=== PATIENT | male | born 1965 | race Caucasian/White ===

== ENCOUNTER 2018-03-18 17:13 | Observation (INO) ==
[2018-03-18] MEDS ORDERED: Naloxone 0.4 MG/ML INJ IVP PRN (21:46)
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
[2018-03-18] MEDS: Melatonin 3 MG TABLET PO PRN (22:13)
[2018-03-18] MEDS ORDERED: Ibuprofen 400 MG TABLET PO PRN (22:20)
[2018-03-19 06:15] LABS: Mean Corpuscular Volume 85.7 fL (83.0-100.0); Red Cell Distribution Width 18.7 % (11.5-14.5)
[2018-03-19 06:16] LABS: Hematocrit 29.9 % (37.5-50.1); Hemoglobin 9.1 g/dL (12.9-16.9); Mean Corpuscular HGB Conc 30.4 g/dL (31.6-35.5); Mean Corpuscular Hemoglobin 26.1 pg (28.0-33.3); Mean Platelet Volume 10.4 fL (9.4-12.4); Red Blood Count 3.49 M/mcL (4.19-5.50)
[2018-03-19 06:31] LABS: Alanine Aminotransferase 27 Units/L (7-52); Albumin 3.2 g/dL (3.5-5.7); Alkaline Phosphatase 66 Units/L (34-104); Aspartate Amino Transferase 48 Units/L (13-39); BUN/Creatinine Ratio 7 (6-26); Bilirubin,Total 1.3 mg/dL (0.3-1.0); Blood Urea Nitrogen 5 mg/dL (6-20); Calcium 8.3 mg/dL (8.6-10.3); Carbon Dioxide 25 mEq/L (23-29); Chloride 103 mEq/L (98-107); Globulin 3.2 g/dL (2.4-3.5); Glucose 113 mg/dL (70-105); Osmolality,Calculated 282 (280-300); Potassium 3.2 mEq/L (3.5-5.1); Sodium 137 mEq/L (136-145); Total Protein 6.4 g/dL (6.4-8.9); eGFR For Non-African Americans > 60 (> 60)
[2018-03-19 08:32] LABS: Magnesium 1.7 mg/dL (1.6-2.6)
[2018-03-19 08:46] LABS: Thyroid Stimulating Hormone 2.662 mcIU/mL (0.340-5.600)
--- NOTE | 2018-03-19 09:28 | Cardiology Consult Note ---
Date of Encounter: 03/19/18 Time of Encounter: 09:00 Assessment and Plan (1) A-fib Current Visit: Yes Status: Resolved Pt presented to [facility] ER at the request of his physician yesterday; having "funny beets" in his chest outfront of the office -EKG at doctor showed A fib -He stated that he had dizziness and felt like his heart was racing. -presumably been having episodes for the last 6-8 mos ---> He has associated s/ s of SOB, shakiness, dizziness and palpitations -he denies chest pain with the episode and denies active chest pain -he denies N/V, sweats, or fevers -the pt spon't converted to normal sinus rhythm without intervention in the ER at [place] and was transferred to [place] for further workup CXR 03/18/18 -cardiomegaly -chronic appearing coarse interstitial densities predominate parahilar regions/ lung bases -typical sequela from smoking or other infectious/inflammatory processes -no definitive radiographic evidence of acute pulmonary disease -troponins (-) x 2 -EKG from [facility] showed a fib Plan: -ECHO pending -continue telemetry -Aspirin 81mg PO -start lopressor 25mg PO daily -CHADVASc score - 1, would benefit from ASA only, no need for anticoagulants senior care at this point -if ECHO are normal, pt will be stable from a cardiology standpoint for discharge and the pt can follow up as an outpatient with cardiology Qualifiers: Atrial fibrillation type: paroxysmal Qualified Code(s): I48.0 - Paroxysmal atrial fibrillation (2) Hypertension Current Visit: No Status: Chronic Pt BP this morning 110/67 -adequate control Plan: -continue HCTZ 25mg PO daily -consider adding Potassium to his daily regimen, as the pt has a K of 3.2 this morning Qualifiers: Hypertension type: essential hypertension Qualified Code(s): I10 - Essential (primary) hypertension (3) Alcohol abuse Current Visit: No Status: Chronic Pt drinks 10-12 beers per day -denies hx of withdrawal, hallucinosis, DT's -pt has thrombocytopenia (80k plt) and anemia, he displays no stigmata of EtOH abuse such as umbilical varices/palmar erythema/or telangiectasas -AST 48, ALT 27 Plan: -counseld pt on the adverse health affects of alcoholism, recommended trying AA -monitor as per CIWA protocol and primary -check B1 levels -check Mg and Phosphorus levels -CIWA score has been 1 since admission -consider adding a banana bag if thiamine is low Discussion w patient/family: The assessment and plan as outlined above was discussed with the patient and/or family members who expressed understanding and agreement. All questions were answered. Thank you for involving us in the care of your patient. Please call with any questions. History of Present Illness Consult date: 03/18/18 Requesting physician: Mario Ryder Consult reason: A fib RVR Chief complaint: "funny beets in my chest" History of present illness: Mr. Solares is a 52 year old male who presented to the ER at [place] at the request of his PCP. When he went to his dr appt that morning, he had an episode of having "funny beets" in his chest outfront of the office and the doctor did an EKG, which showed him to be in a fib. He stated that he had dizziness and felt like his heart was racing. -since around August or September, the pt states he has been having episodes of dizziness and palpiltations, which he thought was due to trying to get off his pain meds. -He was going to the doctor for an evaluation of a left breast lump -He has associated s/s of SOB, shakiness, dizziness and palpiltations -he denies chest pain with the episode and denies active chest pain -he denies N/V, sweats, or fevers -the pt spon't converted to normal sinus rhythm without intervention in the ER at [place] and was transferred to [place] for further workup The pt has a hx of alcohol abuse and drinks 10-12 beers daily. -He states he is not experiencing any s/s of EtOH withdrawal, however, does state that he is very anxious and appears slightly clammy. He denies that the anxiety has anything to do with not having a drink since yesterday and denies any hx of going thru EtOH withdrawal, hallucinosis, or DT's Fluids - none Electrolytes - Potassium 3.2 Nutrition - currently NPO DVT prophylaxis - SCD's GI prophylaxis - omeprazole 20mg PO daily Past Med Surg Social Fam HX - Past Medical History Medical history: hypertension Additional medical history: chronic pain, Psychiatric history: no psych history - Past Surgical History Additional surgical history: multiple right leg surgeries, - Social History Smoking Status: Never smoker Smokeless Tobacco Status: No Alcohol use: heavy Drug use: none Medications and Allergies Omeprazole Magnesium [Prilosec Otc] 20 mg PO DAILY 03/04/16 [History] OxyCODONE Immed Rel [Roxicodone 10 MG] 10 mg PO Q6H PRN 03/04/16 [History] hydroCHLOROthiazide [Hydrochlorothiazide] 25 mg PO DAILY 03/04/16 [History] 3 Allergy/AdvReac Type Severity Reaction Status Date / Time No Known Allergies Allergy Unverified 12/30/16 14:36 All Systems Review: The remainder of the systems were reviewed and are negative - Constitutional Constitutional: weight loss, no fever(s), no night sweats - Cardiovascular Cardiovascular: lightheadedness, palpitations, paroxysmal nocturnal dyspnea, no chest pain at rest, no chest pain with exertion, no dyspnea at rest, no dyspnea on exertion, no irregular heart rhythm, no orthopnea - Respiratory Respiratory: no dyspnea, no wheezing - Gastrointestinal Gastrointestinal: no abdominal pain, no diarrhea, no nausea - Musculoskeletal Musculoskeletal: abnormal gait, arthralgias - Neurological Neurological: dizziness, no numbness, no tingling Physical Examination Vital Signs, Last 4 Hours Temp Pulse Resp BP Pulse Ox 03/19/18 06:58 98.3 F 77 15 110/67 98 General: Conversant, No Apparent Distress HEENT: Atraumatic, Normocephaly, Mucus Membranes Moist Neck: No JVD Cardiac: Reg Rate and Rhythm, Normal S1 and S2, No Murmur Lungs: Normal Breath Sounds, No Wheeze, Rales, Rhonchi Neuro: Alert and responsive Abdomen: Soft Skin: No rashes noted on visualized skin Musculoskeletal: No Chest Wall Tenderness Extremities: No Edema Results 03/19/18 05:47 03/19/18 05:47 Lab Results 03/18/18 03/19/18 03/19/18 22:23 05:47 05:47 WBC 3.5 L Hgb 9.1 L D Hct 29.9 L Plt Count 80 L Sodium Potassium Chloride Carbon Dioxide BUN Creatinine Glucose Calcium Magnesium Total Bilirubin AST ALT Alkaline Phosphatase Troponin I < 0.03 < 0.03 TSH 03/19/18 05:47 WBC Hgb Hct Plt Count Sodium 137 Potassium 3.2 L Chloride 103 Carbon Dioxide 25 BUN 5 L Creatinine 0.70 Glucose 113 H Calcium 8.3 L Magnesium 1.7 Total Bilirubin 1.3 H AST 48 H ALT 27 Alkaline Phosphatase 66 Troponin I TSH 2.662 Consult Discharge Plan - Plan Referrals: NONE,PCP [Primary Care Provider] -
[2018-03-19 10:41] LABS: Magnesium 1.7 mg/dL (1.6-2.6); Phosphorous 3.3 mg/dL (2.7-4.5)
[2018-03-19] MEDS ORDERED: Regadenoson 0.4 MG/5 ML SYRINGE IVP ONE (11:09)
--- NOTE | 2018-03-19 13:17 | Internal Med Progress Note ---
Hospitalist Progress Note - Encounter Date of Encounter: 03/19/18 Time of Encounter: 13:15 - Subjective Interval History: Pt currently has no complaints. - Exam Vitals: Temp Pulse Resp BP Pulse Ox 98.2 F 84 16 129/80 96 03/19/18 11:11 03/19/18 11:11 03/19/18 11:11 03/19/18 11:11 03/19/18 11:11 Exam: PHYSICAL EXAMINATION: GENERAL APPEARANCE: The patient is alert, oriented and in no acute distress. HEENT: Head is normocephalic. The sinuses are nontender. Pupils are equal and reactive. The nares are patent. Oropharynx clear without lesions. NECK: Supple without lymphadenopathy. HEART: Regular rate and rhythm. LUNGS: No crackles or wheezes are heard. ABDOMEN: Soft, nontender, nondistended with good bowel sounds heard. Inguinal area is normal. EXTREMITIES: Without cyanosis, clubbing or edema. NEUROLOGICAL: Gross nonfocal. SKIN: Warm and dry without any rash. - Assessment and Plan (1) A-fib Current Visit: Yes Status: Resolved Assessment and Plan: 52-year-old male presented with new onset of atrial fibrillation.self converted to sinus rhythm at the ED. Cardiology consulted, pending echocardiogram and a stress test. (2) Thrombocytopenia Current Visit: No Status: Acute Assessment and Plan: Platelets stable, etiology likely secondary to chronic alcohol abuse. (3) Alcohol abuse Current Visit: No Status: Chronic Assessment and Plan: Discussed with patient about alcohol cessation. (4) DVT prophylaxis Current Visit: Yes Status: Acute Assessment and Plan: SCDs. (5) Hypertension Current Visit: No Status: Chronic Assessment and Plan: BP controlled, continue home medications. - Time Spent with Patient Total time spent is greater than 50% in coordination of care (as documented) at patient's floor/unit and/or counseling patient: Greater than 35 minutes Plan of Care Discussed with: patient Internal Medicine: Result - Labs CBC & Chem 7: 03/19/18 05:47 03/19/18 05:47 Labs: Short CBC 03/19/18 Range/Units 05:47 WBC 3.5 L (4.3-11.1) K/mcL Hgb 9.1 L D (12.9-16.9) g/dL Hct 29.9 L (37.5-50.1) % Plt Count 80 L (140-400) K/mcL BMP 03/19/18 05:47 Sodium 137 Potassium 3.2 L Chloride 103 Carbon Dioxide 25 BUN 5 L Creatinine 0.70 Glucose 113 H Calcium 8.3 L Cardiac Enzymes 03/18/18 03/19/18 Range/Units 22:23 05:47 Troponin I < 0.03 < 0.03 (< 0.04) ng/mL Liver Function 03/19/18 Range/Units 05:47 Total Bilirubin 1.3 H (0.3-1.0) mg/dL AST 48 H (13-39) Units/L ALT 27 (7-52) Units/L Alkaline Phosphatase 66 (34-104) Units/L Albumin 3.2 L (3.5-5.7) g/dL - VTE Documentation of Mechanical Device: Intermittent pneumatic compression device Consult Discharge Plan - Plan Referrals: NONE,PCP [Primary Care Provider] - (1) A-fib Qualifiers: Atrial fibrillation type: paroxysmal Qualified Code(s): I48.0 - Paroxysmal atrial fibrillation (5) Hypertension Qualifiers: Hypertension type: essential hypertension Qualified Code(s): I10 - Essential (primary) hypertension
[2018-03-19] MEDS: Aspirin Enteric Coated 81 MG Tablet PO SCH (14:08)
[2018-03-19] MEDS ORDERED: *HR* LORazepam 2 MG/ML VIAL IVP PRN (14:22)
--- NOTE | 2018-03-19 14:26 | Event Note ---
Date of Encounter: 03/19/18 Time of Encounter: 14:30 - Cardiology Event Note STRESS TEST: Impression: Perfusion imaging was negative for ischemia or infarct. Pharmacologic stress ECG is negative for ischemia at level of heart rate achieved. Gated EF > 70%. Per discussion with Dr. De Paz, will s/o, reconsult as needed, follow-up arranged.
[2018-03-19] MEDS ORDERED: Perflutren Lipid Microsphere 1.3 ML in 0.9 % Sodium Chloride 8.7 ML IVP ONE (16:07)
[2018-03-19] MEDS ORDERED: Perflutren Lipid Microsphere 2 ML VIAL ONE (16:09)
--- NOTE | 2018-03-19 17:31 | Electrocardiograph Report ---
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
[2018-03-19] MEDS: Melatonin 3 MG TABLET PO PRN (21:14)
[2018-03-20 05:53] LABS: Basophils % 0.6 %; Eosinophils # 0.1 K/mcL (0.0-0.6); Hematocrit 32.2 % (37.5-50.1); Hemoglobin 9.7 g/dL (12.9-16.9); Immature Granulocytes % 0.3 % (0-4); Immature Platelets 6.3 % (1.1-6.1); Lymphocytes % 29.3 %; Mean Corpuscular HGB Conc 30.1 g/dL (31.6-35.5); Mean Corpuscular Hemoglobin 26.2 pg (28.0-33.3); Mean Platelet Volume 10.9 fL (9.4-12.4); Monocytes # 0.3 K/mcL (0.0-1.3); Monocytes % 7.8 %; Red Cell Distribution Width 18.6 % (11.5-14.5)
[2018-03-20 06:03] LABS: Platelet Count 80 K/mcL (140-400)
[2018-03-20 06:12] LABS: BUN/Creatinine Ratio 7 (6-26); Blood Urea Nitrogen 5 mg/dL (6-20); Calcium 8.8 mg/dL (8.6-10.3); Carbon Dioxide 25 mEq/L (23-29); Chloride 103 mEq/L (98-107); Glucose 116 mg/dL (70-105); Osmolality,Calculated 278 (280-300); Potassium 3.3 mEq/L (3.5-5.1); Sodium 135 mEq/L (136-145); eGFR For Non-African Americans > 60 (> 60)
[2018-03-20 08:06] VITALS: BP 136/81
[2018-03-20] MEDS ORDERED: Metoprolol XL (24 HR) Succ 25 MG TAB.ER.24H PO SCH (09:00)
[2018-03-20] MEDS: Aspirin Enteric Coated 81 MG Tablet PO SCH (10:36)
--- NOTE | 2018-03-20 13:04 | Discharge Summary ---
- NOTES TO OUTPATIENT PROVIDER Notes to Outpatient Provider: f/u with PCP within a week Orders not resulted at time of discharge: Pending orders 03/19/18 09:45 Vitamin B1 (Thiamine) Whole Bl Routine 03/19/18 10:36 NM priya perf SPECT multi [NM] Routine Date of Encounter: 03/20/18 Time of Encounter: 13:02 - Discharge Diagnosis (1) A-fib Priority: Primary Status: Resolved Qualifiers: Atrial fibrillation type: paroxysmal Qualified Code(s): I48.0 - Paroxysmal atrial fibrillation (2) Thrombocytopenia Priority: Secondary Status: Acute (3) Alcohol abuse Priority: Secondary Status: Chronic (4) DVT prophylaxis Priority: Primary Status: Acute (5) Hypertension Priority: Secondary Status: Chronic Qualifiers: Hypertension type: essential hypertension Qualified Code(s): I10 - Essential (primary) hypertension Hospital course: Mr. Solares is a 52 year old male. Patient presented to the emergency room at [place] after being seen at his primary care physician. While at his doctor's office he had an episode of accelerated heart rate and dizziness. His doctor recommended he be seen at the emergency room for further evaluation. In the ER EKG was performed and patient was noted to be in atrial fibrillation with RVR with a rate of 145. While at the emergency room he spontaneously resolved to normal sinus rhythm without intervention. He was then transferred to [facility] for further evaluation. Upon my assessment, patient states that he thinks this is been happening for a while, possibly 6-8 months. He thought in the past that maybe it was related to his pain medicine which he had been taking for his right leg but the episodes have continued despite stopping his pain medicine. Associated symptoms affiliated with his heart rate include shortness of breath, shakes, dizziness, palpitations and occasional diarrhea. He denies chest pain, vision changes, nausea, vomiting, fever and diaphoresis. Further workup at [facility] showed normal TSH and free T4, echocardiogram ejection fraction 60% with mild LV diastolic dysfunction, no obvious valvular disease, stress nuclear test negative for ischemia. Cardiology was consulted, recommended continue aspirin because patient has very low CHADS score. He will be discharged home to day with f/u with PCP within a week. Discharge discussed with: patient Time spent discussing smoking cessation with patient: more than 10 minutes - Time Spent with Patient Total time spent providing and/or coordinating discharge services: Greater than 30 minutes - Discharge Medications Prescriptions: Aspirin Enteric Coated [Aspirin EC] 81 mg PO DAILY #30 tablet. Metoprolol XL (24 HR) Succ [Toprol Xl] 25 mg PO DAILY #30 tab.er.24h Home Medications: Omeprazole Magnesium [Prilosec Otc] 20 mg PO DAILY 03/04/16 [History] hydroCHLOROthiazide [Hydrochlorothiazide] 25 mg PO DAILY 03/04/16 [History] Aspirin Enteric Coated [Aspirin EC] 81 mg PO DAILY #30 tablet. 03/20/18 [Rx] Metoprolol XL (24 HR) Succ [Toprol Xl] 25 mg PO DAILY #30 tab.er.24h 03/20/18 [ Rx] Allergies/Adverse Reactions: 3 Allergy/AdvReac Type Severity Reaction Status Date / Time No Known Allergies Allergy Unverified 12/30/16 14:36 Date of admission: 03/18/18 19:53 Primary care physician: PCP NONE Consults: 03/18/18 21:52 Consult to Cardiology [CONS] Routine Comment: Consulting Provider: Cardiology Ingrid Reason for Consult: Patient had episode of atrial fibrillation at doctor's office earlier today. Has been having episodes he thinks for several months. Call Completed: No Anticipated date of discharge: 03/20/18 - Constitutional Vitals: Temp Pulse Resp BP Pulse Ox 98.1 F 82 18 136/81 97 03/20/18 08:06 03/20/18 08:06 03/20/18 08:06 03/20/18 08:06 03/20/18 08:06 General appearance: Present: cooperative, A&O X 3, pleasant, no acute distress, answers questions appropriately Exam: PHYSICAL EXAMINATION: GENERAL APPEARANCE: The patient is alert, oriented and in no acute distress. HEENT: Head is normocephalic. The sinuses are nontender. Pupils are equal and reactive. The nares are patent. Oropharynx clear without lesions. NECK: Supple without lymphadenopathy. HEART: Regular rate and rhythm. LUNGS: No crackles or wheezes are heard. ABDOMEN: Soft, nontender, nondistended with good bowel sounds heard. Inguinal area is normal. EXTREMITIES: Without cyanosis, clubbing or edema. NEUROLOGICAL: Gross nonfocal. SKIN: Warm and dry without any rash. - Patient Status Disposition: Home, Self-Care Condition: Fair Functional capacity at discharge: independent ambulation Overall status at discharge: patient is back to baseline - Discharge Instructions Follow Up With: NONE,PCP [Primary Care Provider] - - Diet and Activity Activity: increase activity as tolerated Diet: low fat, low cholesterol, low salt diet - VTE Documentation of Mechanical Device: Intermittent pneumatic compression device
== END 2018-03-20 14:38 | disposition home or self-care (01) ==
LOC: 3BNU
PROVIDERS: ADMIT Internal Medicine Cardiovascular Disease; ATTEND Internal Medicine Cardiovascular Disease